=== PATIENT | male | born 1990 | race African-American/Black ===

== ENCOUNTER 2019-08-24 08:50 | Emergency (ER) | payer MEDICAID ==
[~2019-08-24] VITALS: Ht 162.6 cm; Wt 72.0 kg
[2019-08-24] MEDS ORDERED: IBUPROFEN 600MG TABLET PO ONE (09:45)
[2019-08-24 12:18] VITALS: BP 127/79
== END 2019-08-24 12:19 | disposition home or self-care (01) ==
LOC: ER 08:50
DX: S02.40DA Maxillary fracture, left side, initial encounter for closed fracture (principal); S02.69XA Fracture of mandible of other specified site, initial encounter for closed fracture; W22.8XXA Striking against or struck by other objects, initial encounter; Y93.89 Activity, other specified; Y92.89 Other specified places as the place of occurrence of the external cause; Y99.8 Other external cause status; F14.10 Cocaine abuse, uncomplicated
CPT/HCPCS: 70486; 99284